=== PATIENT | male | born 1975 | race Two or more races ===

== ENCOUNTER 2024-08-10 20:15 | Emergency (ER) | payer MEDICAID ==
[~2024-08-10] VITALS: Ht 170.2 cm; Wt 78.0 kg
[2024-08-10 20:18] VITALS: BP 154/79; PULSE 87; RESP 16; TEMP 98.1; O2SAT 98
[2024-08-10 20:52] LABS: BASOPHILS % (AUTO) 0.4 % (0.0-2.0); EOSINOPHILS % (AUTO) 1.8 % (1.0-6.0); HEMATOCRIT 45.1 % (41-53); LYMPHOCYTES # (AUTO) 1.9 K/uL (1.0-4.8); LYMPHOCYTES % (AUTO) 32.5 % (22.0-44.0); MEAN CORPUSCULAR HEMOGLOBIN 30.1 pg (26.0-34.0); MEAN CORPUSCULAR HGB CONC 33.3 G/dL (31.0-37.0); MEAN CORPUSCULAR VOLUME 90 fL (80-100); MONOCYTES # (AUTO) 0.9 K/uL (0.1-1.0); MONOCYTES % (AUTO) 15.1 % (2.0-9.0); NEUTROPHILS # (AUTO) 2.9 K/uL (1.8-7.7); NEUTROPHILS % (AUTO) 50.2 % (40.0-70.0); PLATELET COUNT (AUTO) 238 K/uL (150-450); RED BLOOD CELL COUNT(AUTO) 4.99 MIL/uL (4.50-5.90); RED CELL DISTRIBUTION WIDTH 13.6 % (11.5-14.5); WHITE BLOOD COUNT (AUTO) 5.8 K/uL (4.5-11.0)
[2024-08-10 21:01] LABS: ANION GAP 3 mmol/L (8-16); CARBON DIOXIDE 31 mmol/L (22-29); CHLORIDE 102 mmol/L (98-107); CREATININE 0.81 mg/dL (0.60-1.30); GLOMERULAR FILTR. RATE CALC > 60 mL/min (>60); GLUCOSE,RANDOM 265 mg/dL (70-110); POTASSIUM 3.9 mmol/L (3.5-5.1); SODIUM SERUM 136 mmol/L (136-145); UREA NITROGEN, BLOOD 9 mg/dL (7-18)
[2024-08-10 21:48] LABS: TROPONIN I-HIGH SENSITIVITY 4 ng/L (<76)
[2024-08-10 21:57] LABS: B-TYPE NATRIURETIC PEPTIDE < 5 pg/mL (0-100)
[2024-08-10 22:07] LABS: COVID AG,FIA SOURCE NASAL SWAB
[2024-08-10 22:28] LABS: SARS-COV2 (COVID) ANTIGEN,FIA Negative (Negative)
[2024-08-10 22:29] LABS: INFLUENZA TYPE A NEGATIVE FOR TYPE A (NEGATIVE); INFLUENZA TYPE B NEGATIVE FOR TYPE B (NEGATIVE)
[2024-08-10] MEDS ORDERED: IBUP-1554 PO (23:55)
[2024-08-10] MEDS ORDERED: ATOR40TA71 PO (23:55)
[2024-08-10] MEDS ORDERED: GUAIFDM PO (23:55)
[2024-08-10] MEDS ORDERED: METF-446 PO (23:55)
[2024-08-10] MEDS ORDERED: SITA100 PO (23:55)
[2024-08-10] MEDS ORDERED: ACET-66 PO (23:55)
[2024-08-10] MEDS ORDERED: LISI-894 PO (23:57)
== END 2024-08-11 00:34 | disposition home or self-care (01) ==
LOC: EMS 20:15
DX: J20.9 Acute bronchitis, unspecified (principal); J00 Acute nasopharyngitis [common cold]; E11.65 Type 2 diabetes mellitus with hyperglycemia; I10 Essential (primary) hypertension; Z79.84 Long term (current) use of oral hypoglycemic drugs; Z91.148 Patient's other noncompliance with medication regimen for other reason; Z20.822 Contact with and (suspected) exposure to COVID-19
CPT/HCPCS: 71045; 80048; 83880; 84484; 85025; 87804; 93005; 99285; 36415-L1; 36415-TC

== ENCOUNTER 2024-11-14 16:25 | Emergency (ER) | payer OTHER ==
[~2024-11-14] VITALS: Ht 175.3 cm; Wt 81.8 kg
[~2024-11-14 16:25] MED LIST: ACET-66 PO; ATOR40TA71 PO; GUAIFDM PO; IBUP-1554 PO; LISI-894 PO; METF-446 PO; SITA100 PO
[2024-11-14 16:33] VITALS: BP 131/79; PULSE 80; RESP 18; TEMP 98; O2SAT 99
[2024-11-14] MEDS ORDERED: ASPI-1444 PO (16:35)
[2024-11-14] MEDS ORDERED: LISI20TA24 PO (16:35)
[2024-11-14] MEDS ORDERED: OMEP20CA12 PO (16:35)
[2024-11-14] MEDS: ACETAMINOPHEN 500 MG TABLET PO ONE (17:38)
[2024-11-14] MEDS: IBUPROFEN 600 MG TABLET PO ONE (18:19)
== END 2024-11-14 18:46 | disposition home or self-care (01) ==
LOC: EMS 16:25
DX: M25.512 Pain in left shoulder (principal); M25.522 Pain in left elbow; E11.9 Type 2 diabetes mellitus without complications; I10 Essential (primary) hypertension; K21.9 Gastro-esophageal reflux disease without esophagitis; Z79.82 Long term (current) use of aspirin; Z79.899 Other long term (current) drug therapy; W18.2XXA Fall in (into) shower or empty bathtub, initial encounter; W22.01XA Walked into wall, initial encounter; Y92.89 Other specified places as the place of occurrence of the external cause; Y93.E1 Activity, personal bathing and showering
CPT/HCPCS: 99284